=== PATIENT | female | born 1990 | race African-American/Black ===

== ENCOUNTER 2019-05-22 08:21 | Inpatient (IN) | payer OTHER ==
[~2019-05-22] VITALS: Ht 160 cm; Wt 81.2 kg
[2019-05-22] MEDS ORDERED: DEXT 5%/LR + PITOCIN 20UNITS/L 1,000 ML IV SCH ×2 (08:58→16:13)
[2019-05-22] MEDS ORDERED: NALOXONE HCL 0.4 MG/ML 1ML VIAL IM PRN (09:00)
[2019-05-22] MEDS ORDERED: CITRIC ACID/SODIUM CITRATE SOLN 30ML UDC PO NR (09:00)
[2019-05-22] MEDS ORDERED: METHYLERGONOVINE MALEATE 0.2 MG/ML IM PRN (09:00)
[2019-05-22 09:29] LABS: INR 0.9; PARTIAL THROMBOPLASTIN TIME 25.2 sec (23.4-31.0); PROTHROMBIN TIME 9.4 sec (9.6-11.0)
[2019-05-22 09:32] LABS: BASOPHILS % 0.7 % (0.0-2.0); EOSINOPHILS % 0.7 % (0.0-5.0); HEMATOCRIT. 30.1 % (36.0-48.0); HEMOGLOBIN. 10.5 g/dL (12.0-16.0); LYMPHOCYTES % 20.4 % (20.0-50.0); MEAN CORPUSCULAR HEMOGLOBIN 28.7 pg (28.0-32.0); MEAN CORPUSCULAR VOLUME 82.5 fL (81.0-99.0); MEAN PLATELET VOLUME 8.2 fl (7.4-10.4); MONOCYTES % 4.9 % (2.0-8.0); NEUTROPHILS % 73.3 % (40.0-76.0); PLATELET 312 x1000/uL (130-400); RED BLOOD CELL COUNT 3.65 mill/uL (4.2-5.4); RED CELL DISTRIBUTION WIDTH 15.5 % (11.6-14.6)
[2019-05-22] MEDS ORDERED: EPHEDRINE SULFATE 50MG/ML VIAL ONE (09:47)
[2019-05-22] MEDS ORDERED: GLYCOPYRROLATE 0.2 MG/ML 2ML VIAL ONE (09:47)
[2019-05-22] MEDS ORDERED: METOCLOPRAMIDE HCL 10MG/2ML VIAL ONE (09:47)
[2019-05-22] MEDS ORDERED: MORPHINE SULFATE/PF 1MG/ML 10ML AMP ONE (09:47)
[2019-05-22] MEDS ORDERED: PHENYLEPHRINE HCL 10 MG/ML 1ML (IV VIAL) IV ONE (09:47)
[2019-05-22] MEDS ORDERED: ONDANSETRON HCL 4MG/2ML INJ ONE (09:47)
[2019-05-22] MEDS ORDERED: CEFAZOLIN SODIUM 1000MG/VIAL ONE (09:47)
[2019-05-22] MEDS ORDERED: OXYTOCIN 10 UNITS/ML 1ML ONE (09:47)
[2019-05-22] MEDS ORDERED: FENTANYL CITRATE/PF 50MCG/ML 2ML VIAL ONE (09:47)
[2019-05-22] MEDS: LACTATED RINGERS 1,000 ML IV SCH ×2 (10:14→11:39)
[2019-05-22] MEDS ORDERED: ESMOLOL HCL 10MG/ML 10ML VIAL IV ONE (12:13)
[2019-05-22] MEDS ORDERED: KETOROLAC 60MG/2ML VIAL IM ONE (12:25)
[2019-05-22] MEDS ORDERED: DIPHENHYDRAMINE 50MG/ML VIAL ONE (12:25)
[2019-05-22 12:39] LABS: HEPATITIS B SURFACE ANTIGEN NEGATIVE
[2019-05-22] MEDS ORDERED: DIPHENHYDRAMINE 50MG/ML VIAL IV PRN (13:30)
[2019-05-22] MEDS ORDERED: NALOXONE HCL 0.4 MG/ML 1ML VIAL IV PRN (13:30)
[2019-05-22] MEDS ORDERED: BUTORPHANOL TARTRATE 2 MG/ML VIAL IV PRN (13:30)
[2019-05-22 15:05] VITALS: BP 115/71
[2019-05-22 15:30] VITALS: BP 113/63
[2019-05-22 16:00] VITALS: BP 108/70
[2019-05-22] MEDS ORDERED: KETOROLAC 30MG/ML VIAL IV PRN (16:15)
[2019-05-22] MEDS ORDERED: LANOLIN OINT 7GM TUBE TOP PRN (16:15)
[2019-05-22] MEDS ORDERED: DIPHENHYDRAMINE 25MG CAPSULE PO PRN (16:15)
[2019-05-22] MEDS ORDERED: IBUPROFEN 400MG TABLET PO PRN (16:15)
[2019-05-22] MEDS ORDERED: TETANUS, DIPHTHERIA, PERTUSSIS VAC/PF 0.5ML (>7YR OLD) IM ONE (16:15)
[2019-05-22] MEDS ORDERED: INFLUENZA VIRUS VACCINE(AFLURIA) 0.5ML SYR IM ONE (16:15)
[2019-05-22] MEDS ORDERED: RHO(D) IMMUNE GLOBULIN 300 MCG/SYR IM PRN (16:15)
[2019-05-22] MEDS ORDERED: ONDANSETRON HCL 4MG/2ML INJ IV PRN (16:15)
[2019-05-22] MEDS: SIMETHICONE 80MG TABLET CHEW PO SCH (18:00)
[2019-05-22] MEDS: KETOROLAC 30MG/ML VIAL IV SCH (18:04)
[2019-05-22 19:30] VITALS: BP 104/66
[2019-05-22] MEDS ORDERED: RHO(D) IMMUNE GLOBULIN 300 MCG/SYR IM NR (22:45)
[2019-05-23 04:00] VITALS: BP 101/54
[2019-05-23] MEDS: KETOROLAC 30MG/ML VIAL IV SCH (05:31)
[2019-05-23 07:38] VITALS: BP 96/52
[2019-05-23 07:52] LABS: BASOPHILS % 0.2 % (0.0-2.0); EOSINOPHILS % 0.5 % (0.0-5.0); HEMATOCRIT. 27.2 % (36.0-48.0); HEMOGLOBIN. 9.4 g/dL (12.0-16.0); LYMPHOCYTES % 9.2 % (20.0-50.0); MEAN CORPUSCULAR HEMOGLOBIN 28.6 pg (28.0-32.0); MEAN CORPUSCULAR VOLUME 82.5 fL (81.0-99.0); MEAN PLATELET VOLUME 8.1 fl (7.4-10.4); MONOCYTES % 4.6 % (2.0-8.0); NEUTROPHILS % 85.5 % (40.0-76.0); PLATELET 236 x1000/uL (130-400); RED BLOOD CELL COUNT 3.29 mill/uL (4.2-5.4); RED CELL DISTRIBUTION WIDTH 15.4 % (11.6-14.6)
[2019-05-23] MEDS: PRENATAL VIT/FE FUMARATE/FA TABLET PO SCH (09:49)
[2019-05-23] MEDS: SIMETHICONE 80MG TABLET CHEW PO SCH ×4 (09:49→20:47)
[2019-05-23] MEDS: FERROUS SULFATE 325MG TABLET PO SCH ×3 (09:49→17:25)
[2019-05-23] MEDS: IBUPROFEN 800MG TABLET PO PRN ×2 (13:06→20:46)
[2019-05-23 16:08] VITALS: BP 103/61
[2019-05-23] MEDS: HYDROCODONE/ACETAMINOPHEN 5/325MG TABLET PO PRN (16:50)
[2019-05-23 19:30] VITALS: BP 112/66
[2019-05-23] MEDS: DOCUSATE SODIUM 100MG CAPSULE PO SCH (20:47)
[2019-05-24] MEDS: HYDROCODONE/ACETAMINOPHEN 5/325MG TABLET PO PRN ×2 (02:14→15:25)
[2019-05-24 04:00] VITALS: BP 111/73
[2019-05-24] MEDS: IBUPROFEN 800MG TABLET PO PRN ×3 (07:29→20:04)
[2019-05-24 07:45] VITALS: BP 114/78
[2019-05-24] MEDS: SIMETHICONE 80MG TABLET CHEW PO SCH ×2 (10:10→20:03)
[2019-05-24] MEDS: PRENATAL VIT/FE FUMARATE/FA TABLET PO SCH (10:11)
[2019-05-24] MEDS: FERROUS SULFATE 325MG TABLET PO SCH (10:11)
[2019-05-24 14:30] VITALS: BP 110/72
[2019-05-24 19:30] VITALS: BP 108/61
[2019-05-24] MEDS: DOCUSATE SODIUM 100MG CAPSULE PO SCH (20:03)
[2019-05-24 23:41] VITALS: BP 121/75
[2019-05-25 01:50] VITALS: BP 111/65
[2019-05-25] MEDS: IBUPROFEN 800MG TABLET PO PRN ×2 (01:50→08:03)
[2019-05-25 08:00] VITALS: BP 103/54
[2019-05-25] MEDS: SIMETHICONE 80MG TABLET CHEW PO SCH (08:03)
[2019-05-25 11:40] VITALS: BP 111/65
[2019-05-25] MEDS: HYDROCODONE/ACETAMINOPHEN 5/325MG TABLET PO PRN (11:40)
== END 2019-05-25 12:00 | disposition home or self-care (01) | DRG 540 ==
LOC: 8 EST LDRP 08:21 → OBSVTOIN 08:21 → 8EST 16:09
PROVIDERS: ADMIT Specialist; ATTEND Specialist
PROC: 10D00Z1 Extraction of Products of Conception, Low, Open Approach (ICD-10-PCS; principal; 2019-05-22)
DX: O34.211 Maternal care for low transverse scar from previous cesarean delivery (principal); O98.32 Other infections with a predominantly sexual mode of transmission complicating childbirth; A63.0 Anogenital (venereal) warts; O99.02 Anemia complicating childbirth; D64.9 Anemia, unspecified; O69.81X0 Labor and delivery complicated by cord around neck, without compression, not applicable or unspecified; Z3A.39 39 weeks gestation of pregnancy; Z37.0 Single live birth; Z83.2 Family history of diseases of the blood and blood-forming organs and certain disorders involving the immune mechanism
CPT/HCPCS: 36415; 86592; 86703; 86762; 86850; 86870; 86886; 86900; 87340; 88307; 90384; G0378; J0690; J1200; J1885; J2274; J2370; J2405; J2590; J2765; J3010; J3490; J7120; Q0163